=== PATIENT | female | born 1965 | race Caucasian/White ===

== ENCOUNTER 2025-03-17 13:00 | Outpatient (OUT) | payer BC, SELFPAY ==
--- OUTSIDE RECORDS SUMMARY | 2023-12-30 08:20 | XMS_ITS ---
Author Organization [facility] Address [address] [place] [address] Care Team Providers Care Diesel Automotive Technician Name Role Phone RaderJamal dawsonen Unavailable [phone] REASON FOR VISIT Lt knee pain -no xrays Medications Medication SIG (Take, Route, Frequency, Duration) Notes Start Date End Date Status lisinopril Active amLODIPine Active Encounters Encounter Location Date Provider Diagnosis [facility] Office [address] [place] [address] [place] [address] 12/30/2023 Shaun Rader Pain, joint, knee, left M25.562 Assessments Encounter Date Diagnosis (ICD Code) Assessment Notes Treatment Notes Treatment Clinical Notes Section Notes 12/30/2023 Pain, joint, knee, left (ICD-10 - M25.562) Plan Of Treatment Pending Test Test Name Order Date SCC- KNEE 4 VIEW LEFT-[id number] 12/30/2023 Progress Notes * TATYANA REHMAN LDOB:1965 (59 yo F)Acc No.[id number]:12/30/2023 Patient: Yousuf THOMAS TATYANA Beltre Provider: Audrey Rader MD :1965 A ge:58 Y S ex:Female Date:12/30/2023 Address:[address] [place], [place] [id number] Subjective: * Chief Complaints: * 1 . Lt knee pain -no xrays. * Medical History: * Medications: T aking amLODIPine , Taking lisinopril Objective: * Vitals: Assessment: * Assessment: 1. P ain, joint, knee, left - M25.562 Plan: * Treatment: Forms: * Images: * Electronic signature of Jamal Rader MD on 03/17/2025 at 01:08 PM EDT Sign off status: Pending * Provider: Audrey Rader MD Date: 0 12/30/2023 Generated for Arabella daniel/Jo Ann/Varsha on: 0 03/17/2025 01:08 PM EDT
--- OUTSIDE RECORDS SUMMARY | 2025-02-24 06:30 | XMS_ITS ---
Author Organization [facility] es Address [address] [place] [address] Care Team Providers Care Software Test Analyst Name Role Phone Carmina Harding Primary Care Provider REASON FOR VISIT BH F/U Encounters Encounter Location Date Provider Diagnosis [facility] [address] [place] [address] 02/24/2025 Carmina Harding Plan Of Treatment Next Appt Details Provider Name:Carmina atkins, 03/24/2025 12:00:00 PM, [address] [place], [address], Progress Notes * NYASIA REHMANADOB:1965 ( 59 yo F)Acc No.[id number]:02/24/2025 BH F/U - Patient Patient: TATYANA SANABRIA Provider: Fernando Harding :1965 A ge:59 Y S ex:Female Date:02/24/2025 Address:[address] [place], [place] [id number] Subjective: * Chief Complaints: * 1 . BH F/U. Objective: Therapeutic Interventions: Assessment: Plan: * Images: Care Plan Details* * Electronic signature of JOSELYN Mckoy on 03/17/2025 at 01:08 PM EDT Sign off status: Pending * Provider: Fernando Harding Date: 0 02/24/2025 Generated for Printi ng/Faxing/eTransmitting on: 0 03/17/2025 01:08 PM EDT
--- OUTSIDE RECORDS SUMMARY | 2025-03-03 09:15 | XMS_ITS ---
Author Organization [facility] es Address [address] [place] [address] Care Team Providers Care Senior Receptionist Name Role Phone Carmina Harding Primary Care Provider REASON FOR VISIT BH F/U Encounters Encounter Location Date Provider Diagnosis [facility] [address] [place] [address] 03/03/2025 Carmina Harding Situational stress F43.9 and Depression with anxiety F41.8 Assessments Encounter Date Diagnosis (ICD Code) Assessment Notes Treatment Notes Treatment Clinical Notes Section Notes 03/03/2025 Situational stress (ICD-10 - F43.9) 03/03/2025 Depression with anxiety (ICD-10 - F41.8) Plan Of Treatment Next Appt Details Follow Up: 2 Weeks, Reason: Provider Name:Carmina atkins, 03/24/2025 12:00:00 PM, [address] [place], [address], Progress Notes * NYASIA REHMANADOB:1965 ( 59 yo F)Acc No.[id number]:03/03/2025 BH F/U - Patient Patient: TATYANA SANABRIA Provider: Fernando Harding :1965 A ge:59 Y S ex:Female Date:03/03/2025 Address:[address] [place] [id number] Subjective: * Chief Complaints: * 1 . BH F/U. Objective: Therapeutic Interventions: Assessment: * Assessment: 1. S ituational stress - F43.9 (Primary) 2 . D epression with anxiety - F41.8 Plan: * Procedure Codes: 9 0837 PSYTX EST PT&/FAMILY 60 MIN (53+) * Follow Up: 2 Weeks * Images: Care Plan Details* Problem B H F/U Progress Note Present At Appointment: Mazin carcamo Session Type: F kerrie to Face Start Time/End Time: S tart: 1:20End: 2:17 Mental Status Examination Orientation: O riented x 4 Mood: D epressed;Anxious Affect: A ppropriate Insight/Judgment: F air Thought Process: C ircumstantial Speech: N ormal Intervention Risk Assessment: P T denies all areas of risk. No contrary indications present. Therapy Modality: c ognitive behavioral Interventions: a ssess safety risks;cognitive challenging;cognitive refocusing;cognitive reframing;encourage expression of needs;exploration of coping skills;emotion regulation;healthy boundaries;increase awareness of warning signs to triggers;identify unmet emotional needs;supportive reflection;process trauma/significant life events;problem-solve barriers;reflective listening;mindfulness trainingComments :SOCK EXAMINER offered supportive listening and validation of patients feelings. SOCK EXAMINER provided feedback as needed. SOCK EXAMINER worked with patient on ways to navigate her her emotions with her husbands illness and being a caregiver and work a fulltime job. SOCK EXAMINER explored ways to navigate self care and asking for help when needed. Patient to continue her coping skills as needed. Response to Intervention: Mazin carcamo reports her has had another surgery and that she has been struggling to feel like she can breathe and take care of herself. Patient reports that she has been working to secure a home health aid to come in while she is at work. Patient reports that she has not been taking care of herself and that she is giving to everyone around her where she has nothing left for herself. Progress: l ow * Sign off status: Completed true * Provider: Fernando Harding Date: 03/03/2025 Generated for Arabella daniel/Jo Ann/Varsha on: 03/17/2025 01:09 PM EDT
--- OUTSIDE RECORDS SUMMARY | 2025-03-09 10:15 | XMS_ITS ---
Author Organization [facility] es Address [address] [place] [address] Care Team Providers Care Business Practices Supervisor Name Role Phone Carmina Harding Primary Care Provider REASON FOR VISIT BH F/U Encounters Encounter Location Date Provider Diagnosis [facility] [address] [place] [address] 03/09/2025 Carmina Harding Plan Of Treatment Next Appt Details Provider Name:Carmina atkins, 03/24/2025 12:00:00 PM, [address] [place], [address], Progress Notes * [place]ASIA REHMANADOB:1965 ( 59 yo F)Acc No.[id number]:03/09/2025 BH F/U - Patient Patient: TATYANA SANABRIA Provider: Fernando Harding :1965 A ge:59 Y S ex:Female Date:03/09/2025 Address:[address] [place], [place] [phone] Subjective: * Chief Complaints: * 1 . BH F/U. Objective: Therapeutic Interventions: Assessment: Plan: * Images: Care Plan Details* * Electronic signature of JOSELYN Mckoy on 03/17/2025 at 01:08 PM EDT Sign off status: Pending * Provider: Fernando Harding Date: 0 03/09/2025 Generated for Printi ng/Faxing/eTransmitting on: 0 03/17/2025 01:08 PM EDT
--- OUTSIDE RECORDS SUMMARY | 2025-03-10 08:30 | XMS_ITS ---
Author Organization [facility] es Address [address] [place] [address] Care Team Providers Care Crusher And Binder Operator Name Role Phone Carmina Harding Primary Care Provider REASON FOR VISIT BH F/U Encounters Encounter Location Date Provider Diagnosis [facility] [address] [place] [address] 03/10/2025 Carmina Harding Plan Of Treatment Next Appt Details Provider Name:Carmina atkins, 03/24/2025 12:00:00 PM, [address] [place], [address], Progress Notes * NYASIA REHMANADOB:1965 ( 59 yo F)Acc No.[id number]:03/10/2025 BH F/U - Patient Patient: TATYANA SANABRIA Provider: Fernando Harding :1965 A ge:59 Y S ex:Female Date:03/10/2025 Address:[address] [place], [place] [phone] Subjective: * Chief Complaints: * 1 . BH F/U. Objective: Therapeutic Interventions: Assessment: Plan: * Images: Care Plan Details* * Electronic signature of JOSELYN Mckoy on 03/17/2025 at 01:08 PM EDT Sign off status: Pending * Provider: Fernando Harding Date: 03/10/2025 Generated for Printi ng/Faxing/eTransmitting on: 03/17/2025 01:08 PM EDT
--- OUTSIDE RECORDS SUMMARY | 2025-03-17 13:08 | XMS_ITS | Encounter Summary ---
Author Organization [facility] Address [address] [facility] [place] [address] Care Team Providers Care Truck And Transport Mechanic Name Role Phone Santiago Simon MD Primary Care Provider [phone] Encounter Details Date Type Department Care Team (Late st Contact Info) Description 11/09/2024 Abstract [facility] [address] [place] [address] [place] [address] Santiago Simon MD [address] [facility] [address] [place], [place] [id number] Social History Tobacco Use Types Packs/Day Years Used Date Smoking Tobacco: Never Smokeless Tobacco: Never Alcohol Use Standard Drinks/Week Comments Never 0 (1 standard drink = 0.6 oz pur e alcohol) PHQ-2 Answer Date Recorded Patient Health Questionnaire-2 Score 0 10/16/2024 Comments Unknown Sex and Gender Information Value Date Recorded Sex Assigned at Not on file Legal Sex Female 7:13 PM EDT Gender Identity Not on file Sexual Orientation Not on file documented as of this encounter Plan of Treatment Not on file documented as of this encounter Visit Diagnoses Not on filedocumented in this encounter Care Teams Truck And Transport Mechanic Relationship Specialty Start Date End Date Santiago Simon MD [address] [facility] [address] [place] [address] PCP - General Internal Medicine 11/23/22 documented as of this encounter
--- OUTSIDE RECORDS SUMMARY | 2025-03-17 13:08 | XMS_ITS | Encounter Summary ---
Author Organization [facility] Address [address] [facility] [place] [address] Care Team Providers Care Gas Tender Name Role Phone Santiago Simon MD Primary Care Provider [phone] Encounter Details Date Type Department Care Team (Late st Contact Info) Description 02/04/2025 Abstract [facility] [address] [place] [address] [place] [address] Santiago Simon MD [address] [facility] [address] [place], [place] [phone] Social History Tobacco Use Types Packs/Day Years [...] on filedocumented in this encounter Care Teams Gas Tender Relationship Specialty Start Date End Date Santiago Simon MD [address] [place] [address] [place], [place] [phone] PCP - General Internal Medicine 11/23/22 documented as of this encounter
--- OUTSIDE RECORDS SUMMARY | 2025-03-17 13:08 | XMS_ITS | Patient Health Record ---
Author Organization [facility] Address [address] [place] [address] Care Team Providers Care Torque Tester Name Role Phone Shaun Rader Unavailable [phone] Allergies Allergen (clinical drug ingredient) Drug/Non Drug Allergy documented on EMR Reaction Allergy Type Onset Date Status morphine morphine Unknown Drug Allergy Active Reason For Referral No Information Medications Medication SIG (Take, Route, Frequency, Duration) Notes Start Date End Date Status lisinopril Active amLODIPine Active Social History Tobacco Use: Social History Observation Description Date Details (start date - stop date) Never Smoker NA - NA Smoking History Question Answer Notes Smoking Status NonSmoker AUDIT-C (Standard) Question Answer Notes Did you have a drink containing alcohol in the p ast year? 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) Active confirmed Problem 043875810 Strain of other muscles, fascia and tendons at shoulder and upper arm level, right arm, subsequent encounter (S46.811D) Active confirmed Problem 189569759 Preop testing (Z01.818) Active confirmed Problem Tear of right infraspinatus tendon, subsequent encounter (S46.811D) Active confirmed Problem 779782271 Strain of muscle , fascia and tendon of other parts of biceps, right arm, initial encounter (S46.211A) Inactive confirmed Problem 409292771 Strain of muscle , fascia and tendon of other parts of biceps, right arm, subsequent encounter (S46.211D) Inactive confirmed Problem 098307611 Strain of other muscles, fascia and tendons at shoulder and upper arm level, right arm, initial encounter (S46.811A) Inactive confirmed Problem 517854186 Strain of right shoulder, initial encounter (S46.911A) Inactive confirmed Plan Of Treatment No Information Insurance Providers Payer Name Payer Address Payer Phone Subscriber Number Group Number Insured Name Patient Relationship to Insured Coverage Start Date Coverage End Date [facility] [address] [place] [address] [id number] TATYANA REHMAN Self - patient is the insured [facility] [employer] [address] [place] [address] [id number] doi 07-25-21 [employer], Employee 2 Medical (General) History Medical History History ICD Code High Blood Pressure: Yes Sleep apnea: Yes CPAP Machine: Yes Do you use the CPAP machine? Yes Drug Allergies: Yes Surgical History Surgery Date(Month/Year) Right shoulder arthroscopic RCR 08/2021 Hip 1981 Gallbladder 1989
--- OUTSIDE RECORDS SUMMARY | 2025-03-17 13:08 | XMS_ITS | Clinical Summary ---
Author Organization [facility] Healthcare Address [address] [place] [address] Care Team Providers Care Washer And Capper Machine Operator Name Role Phone Santiago Simon MD Primary Care Provider [phone] Allergies Active Allergy Reactions Criticality Noted Date Comments Morphine Nausea And Vomiting, GI intolerance Low 03/16/2013 Other Reaction(s): hallucinations/vomitin g Medications Multiple Vitamin (multivitamin) capsule Take 1 capsule by mouth in the morning. Active lisinopril-hydroCHL OROthiazide 20-12.5 MG tabletIndications:B enign essential hypertension Take 1 tablet by mouth at noon and 1 tablet in the evening. 180 tablet 3 5 07/09/19 26 Active amLODIPine (Norvasc) 2.5 MG tabletIndications:E ssential (primary) hypertension Take 1 tablet (2.5 mg) by mouth Daily 90 tablet 3 5 07/09/19 26 Active diclofenac (Voltaren) 50 MG EC tabletIndications:L ocalized, secondary osteoarthritis of the hand, unspecified laterality Take 1 tablet (50 mg) by mouth in the morning and 1 tablet (50 mg) before bedtime. 60 tablet 11 5 07/09/19 26 Active fluticasone (Flonase) 50 MCG/ACT nasal sprayIndications:Ac sy non-recurrent pansinusitis USE 1 - 2 SPRAYS IN EACH NOSTRIL DAILY *SHAKE GENTLY/PRIME PUMP/CLEAN AND REPLACE CAP* 16 mL 6 5 Active Active Problems Problem Noted Date Diagnosed Date Morbid obesity with BMI of 40.0-44.9, adult 01/29 Retinal hemorrhage of left eye 02/10/2025 Abnormal level of female sex hormones 12/05/2022 Mixed anxiety and depressive disorder 12/05/2022 Obesity, unspecified obesity severity, unspecified obesity type 12/05/2022 Osteoarthritis of hand 12/05/2022 Strain of unspecified muscle , fascia and tendon at shoulder and upper arm level, right arm, initial encounter 11/22/2022 Difficulty walking 02/20/2021 Adrenogenital disorder 08/23/2017 Localized, secondary osteoarthritis of the hand 08/08/2017 Obesity 09/20/2016 Abnormal results of liver function studies 08/12 Attention deficit hyperactivity disorder (ADHD) 08/12/2015 Benign essential hypertension 08/12/2015 Impaired fasting glucose 08/12/2015 Obstructive sleep apnea 08/12/2015 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 [address] [facility] [address] [place] [address] Santiago Simon MD Retinal change (Primary Dx); Encounter for screening mammogram for breast cancer; Retinal hemorrhage of left eye; Subjective carotid bruit; Morbid obesity with BMI of 40.0-44.9, adult ([facility]) 02/10/2025 Travel 02/10/2025 Abstract [facility] [address] [facility] [address] [place] [address] Santiago Simon MD 02/04/2025 Abstract [facility] [address] [facility] [address] [place] [address] Santiago Simon MD from Last 3 Months Family History Medical History Relation Name Comments Skin cancer Father Hodgkin's lymphoma Paternal Grandmother Relation Name Status Comments Father Alive Paternal Grandmother Other Social History Tobacco Use Types Packs/Day Years Used Date Smoking Tobacco: Never Smokeless Tobacco: Never Tobacco Cessation:Counseling Given: Yes Alcohol Use Standard Drinks/Week Comments Never 0 (1 standard drink = 0.6 oz pur e alcohol) PHQ-2 Answer Date Recorded Patient Health Questionnaire-2 Score 0 02/10/2025 Comments Unknown Sex and Gender Information Value Date Recorded Sex Assigned at Not on file Legal Sex Female 7:13 PM EDT Gender Identity Not on file Sexual Orientation Not on file Last Filed Vital Signs Vital Sign Reading Time Taken Comments Blood Pressure 122/78 02/10/2025 8:40 AM EDT Pulse 60 02/10/2025 8:40 AM EDT Temperature 36.9 C (98.4 F) 10/16/2024 10:07 AM EDT Respiratory Rate 17 07/09/2024 2:09 PM EST Oxygen Saturation 98% 02/10/2025 8:40 AM EDT Inhaled Oxygen Concentration - - Weight 117 kg (259 lb) 02/10/2025 8:40 AM EDT Height 162.6 cm (5' 4 ) 02/10/2025 8:40 AM EDT Body Mass Index 44.46 02/10/2025 8:40 AM EDT Plan of Treatment Health Maintenance Due Date Last Done Comments CT Colonography 1965 Colonoscopy 1965 FIT 1965 FOBT 1965 Sigmoidoscopy 1965 Pap Smear 10/14/1984 Cervical Cancer Screening 10/14/1993 HPV/Cotest 10/14/1993 Mammogram 02/04/2020 02/03/2019, 02/03/2019 Influenza Vaccine (#1) 2025 Colorectal Cancer Screening 08/05/2027 FIT-DNA 08/05/2027 08/05/2024, 10/10/2020, 09/29 Procedures Procedure Name Priority Date/Time Associated Diagnosis Comments POCT GLYCATED HEMOGLOBIN, TOTAL Routine 02/10/2025 9:40 AM EDT Retinal change Retinal hemorrhage of left eye Morbid obesity with BMI of 40.0-44.9, adult (CMS-HCC) LAB COLOGUARD COLON CANCER SCREEN Routine 08/05/2024 8:30 AM EST Encounter for screening for malignant neoplasm of colon BI MAMMOGRAM SCREENING TOMOSYNTHESIS BILATERAL Routine 02/03/2019 from Last 3 Months or Most Recently Relevant to Health Maintenance Results * POCT Glycated hemoglobin, total (02/10/2025 9:40 AM EDT) Hemoglobin A1C 5.1 Blood 02/10/2025 9:40 AM EDT Santiago Simon MD POINT OF CARE TEST ENTER/EDIT ORDERABLES Final Result * Cologuard?? colon cancer screening (08/05/2024 8:30 AM EST) NONINV COLON CA DNA+OCC BLD SCRN STL-IMP Negative Negative 08/12/2024 11:26 PM EST [facility] (CLIA #:[id number]) Comment: NEGATIVE TEST RESULT. A negative Cologuard result indicates a low likelihood that a colorectal cancer (CRC) or advanced adenoma (adenomatous polyps with more advanced pre-malignant features) is present. The chance that a person with a negative Cologuard test has a colorectal cancer is less than 1 in 1500 (negative predictive value >99.9%) or has an advanced adenoma is less than 5.3% (negative predictive value 94.7%). These data are based on a prospective cross-sectional study of 10,000 individuals at average risk for colorectal cancer who were screened with both Cologuard and colonoscopy. (John Martinez. et al, N Engl J Med 2014;370(14):9580-3777) The normal value (reference range) for this assay is negative. COLOGUARD RE-SCREENING RECOMMENDATION: Periodic colorectal cancer screening is an important part of preventive healthcare for asymptomatic individuals at average risk for colorectal cancer. Following a negative Cologuard result, the [place] Cancer Society and U.S. Multi-Society Task Force screening guidelines recommend a Cologuard re-screening interval of 3 years. References: [place] [employer] Society Guideline for Colorectal Cancer Screening: https://www.cancer.org/cancer/imizu-vdzbsi-dwaadr/smbruwttz-frfssysoe-snfdevn/ac s-rec ommendations.html.; Abram LAEXIS, Chrissy PEÑA, Parker ManK, Colorectal Cancer Screening: Recommendations for Physicians and Patients from the U.S. Multi-Society Task Force on Colorectal Cancer Screening , Am J Gastroenterology 2017; 112:5797-0998. TEST DESCRIPTION: Composite algorithmic analysis of stool DNA-biomarkers with hemoglobin immunoassay. Quantitative values of individual biomarkers are not reportable and are not associated with individual biomarker result reference ranges. Cologuard is intended for colorectal cancer screening of adults of either sex, 45 years or older, who are at average-risk for colorectal cancer (CRC). Cologuard has been approved for use by the U.S. FDA. The performance of Cologuard was established in a cross sectional study of average-risk adults aged 50-84. Cologuard performance in patients ages 45 to 49 years was estimated by sub-group analysis of near-age groups. Colonoscopies performed for a positive result may find as the most clinically significant lesion: colorectal cancer [4.0%], advanced adenoma (including sessile serrated polyps greater than or equal to 1cm diameter) [20%] or non- advanced adenoma [31%]; or no colorectal neoplasia [45%]. These estimates are derived from a prospective cross-sectional screening study of 10,000 individuals at average risk for colorectal cancer who were screened with both Cologuard and colonoscopy. (John Solorzano et al, N Engl J Med 2014;370(14):0168-4284.) Cologuard may produce a false negative or false positive result (no colorectal cancer or precancerous polyp present at colonoscopy follow up). A negative Cologuard test result does not guarantee the absence of CRC or advanced adenoma (pre-cancer). The current Cologuard screening interval is every 3 years. ([place] Cancer Society and U.S. Multi-Society Task Force). Cologuard performance data in a 10,000 patient pivotal study using colonoscopy as the reference method can be accessed at the following location: www.[employer]/results. Additional description of the Cologuard test process, warnings and precautions can be found at www.[employer].com. Stool specimen (specimen) Rectal contents / Unknown 08/05/2024 8:30 AM EST 08/06/2024 12:47 PM EST us Santiago Simon MD LAB MOLECULAR DIAGNOSTICS BISHNU BELL Final Result .[facility] (CLIA #:[id number]) [address] [place] [id number], [facility] (CLIA #:[id number]) [address] [place] [address] * Bilateral screening mammogram with tomosynthesis (02/03/2019) Anatomical Region Laterality Modality Breast Bilateral Mammography Narrative 02/03/2019 12:00 AM EDT PERFORMED AT [facility] LOCATION:[place] [id number] Patient: MARI REHMAN Exam Date: 02/03/2019 : 1965 Gender:F Ordering : DR SANTIAGO SIMON M.D. Admission #: [id number] Family : Order #: [id number] CLICK HERE TO VIEW EXAM RADIOLOGY REPORT PROCEDURE: MAMMOGRAM BILATERAL SCREENING DIGITAL WITH COMPUTER AIDED DETECTION COMPARISON: MAMMO SCREEN DIG LEEROY, 01/23/2011. MG MAMM SCREEN LEEROY W CAD, 11/16/2016. INDICATIONS: Screening mammography Calculator Name NCI Breast Cancer Risk Assessment Tool 5 Year Breast Cancer Risk 1.50% Lifetime Breast Cancer Risk 10.20% Personal Breast Cancer No Personal Ovarian Cancer No Treatments None See Below For Report LOCATION: [facility] BREAST COMPOSITION: Scattered areas fibroglandular density. FINDINGS: DIAGNOSTIC CATEGORY 1--NEGATIVE NO CHANGE FROM COMPARISON ASSESSMENT. Bilateral round mole markers. Scattered benign-appearing calcifications are present. Scattered benign-appearing lymph nodes are present. Scattered benign-appearing nodules are present. RIGHT BREAST: No significant suspicious finding. Stable cluster of microcalcifications 6:00 a.m., mid breast LEFT BREAST: No significant suspicious finding. RECOMMENDATIONS: ROUTINE MAMMOGRAM AND CLINICAL EVALUATION IN 12 MONTHS. PLEASE NOTE: A NORMAL MAMMOGRAM DOES NOT EXCLUDE THE POSSIBILITY OF BREAST CANCER. A CLINICALLY SUSPICIOUS PALPABLE LUMP SHOULD BE BIOPSIED. Dictated by: Onel Ryan M.D. on 02/03/2019 at 12:57 Approved by: Onel Ryan M.D. on 02/03/2019 at 12:59 Family Cancers Grandmother-maternal with breast cancer at age 55. Procedure Note CONVERSION, GENERIC - 01/04/2023 PERFORMED AT [facility] LOCATION:[place] [id number] Patient: MARI REHMAN Exam Date: 02/03/2019 : 1965 Gender:F Ordering : DR SANTIAGO SIMON M.D. Admission #: [id number] Family : Order #: [id number] CLICK HERE TO VIEW EXAM RADIOLOGY REPORT PROCEDURE: MAMMOGRAM BILATERAL SCREENING DIGITAL WITH COMPUTER AIDED DETECTION COMPARISON: MAMMO SCREEN DIG LEEROY, 01/23/2011. MG MAMM SCREEN LEEROY WCAD, 11/16/2016. INDICATIONS: Screening mammography Calculator Name NCI Breast Cancer Risk Assessment Tool 5 Year Breast Cancer Risk 1.50% Lifetime Breast Cancer Risk 10.20% Personal Breast Cancer No Personal Ovarian Cancer No Treatments None See Below For Report LOCATION: [facility] BREAST COMPOSITION: Scattered areas fibroglandular density. FINDINGS: DIAGNOSTIC CATEGORY 1--NEGATIVE NO CHANGE FROM COMPARISON ASSESSMENT. Bilateral round mole markers. Scattered benign-appearing calcificationsare present. Scattered benign-appearing lymph nodes are present. Scattered benign-appearing nodules are present. RIGHT BREAST: No significant suspicious finding. Stable cluster of microcalcifications 6:00 a.m., mid breast LEFT BREAST: No significant suspicious finding. RECOMMENDATIONS: ROUTINE MAMMOGRAM AND CLINICAL EVALUATION IN 12 MONTHS. PLEASE NOTE: A NORMAL MAMMOGRAM DOES NOT EXCLUDE THE POSSIBILITY OFBREAST CANCER. A CLINICALLY SUSPICIOUS PALPABLE LUMP SHOULD BE BIOPSIED. Dictated by: Onel Ryan M.D. on 02/03/2019 at 12:57 Approved by: Onel Ryan M.D. on 02/03/2019 at 12:59 Family Cancers Grandmother-maternal with breast cancer at age 55. Santiago Simon MD IMG BI PROCEDURES Final Result from Last 3 Months or Most Recently Relevant to Health Maintenance Insurance [place] [facility] OF [facility] Care Teams Washer And Capper Machine Operator Relationship Specialty Start Date End Date Santiago Simon MD [address] [address] PCP - General Internal Medicine 11/23/22
--- OUTSIDE RECORDS SUMMARY | 2025-03-17 13:08 | XMS_ITS | Encounter Summary ---
Author Organization [facility] Address [address] [facility] [place] [address] Care Team Providers Care Port Purser Name Role Phone Santiago Simon MD Primary Care Provider [phone] Encounter Details Date Type Department Care Team (Late st Contact Info) Description 11/09/2024 Abstract [facility] [address] [place] [address] Santiago Simon MD [address] [facility] 110 [place], [place] [id number] Social History Tobacco Use Types Packs/Day Years [...] on filedocumented in this encounter Care Teams Port Purser Relationship Specialty Start Date End Date Santiago Simon MD [address] [facility] 110 [place] [address] PCP - General Internal Medicine 11/23/22 documented as of this encounter
--- OUTSIDE RECORDS SUMMARY | 2025-03-17 13:08 | XMS_ITS | Patient Health Record ---
Author Organization [facility] es Address [address] [place] [address] Care Team Providers Care Brine Process Operator Name Role Phone Carmina Harding Primary Care Provider [phone] Reason For Referral No Information Problems Problem Type SNOMED Code ICD Code Onset Dates Problem Status W/U Status Risk Notes Problem Mixed anxiety and depressive disorder (830066887) Depression with anxiety (F41.8) Active confirmed Problem Adjustment disorder (32347694) Situational stress (F43.9) Active confirmed Encounters Encounter Location Date Provider Diagnosis [facility] [address] [place] [address] 02/08/2025 Carmina Harding [facility] [address] [place] [address] 02/03/2025 Carmina Harding Situational stress F43.9 [facility] [address] [place] [address] 02/10/2025 Carmina Harding Situational stress F43.9 [facility] [address] [place] [address] 03/03/2025 Carmina Harding Situational stress F43.9 and Depression with anxiety F41.8 Assessments Encounter Date Diagnosis (ICD Code) Assessment Notes Treatment Notes Treatment Clinical Notes Section Notes 02/03/2025 Situational stress (ICD-10 - F43.9) 02/10/2025 Situational stress (ICD-10 - F43.9) 03/03/2025 Situational stress (ICD-10 - F43.9) 03/03/2025 Depression with anxiety (ICD-10 - F41.8) Plan Of Treatment Next Appt Details Provider Name:Carmina atkins, 03/24/2025 12:00:00 PM, [address] [place], [address], Insurance Providers Payer Name Payer Address Payer Phone Subscriber Number Group Number Insured Name Patient Relationship to Insured Coverage Start Date Coverage End Date [facility] [address] [place] [address] [id number] TATYANA REHMAN Self - patient is the [facility] [address] [place] [address] [id number] TATYANA REHMAN Self - patient is the insured 3 3 [employer] [facility] [employer] [address] [place] [address] [id number] TATYANA REHMAN Self - patient is the insured 3 3 [employer] [address] [place] [address] [id number] TATYANA REHMAN Self - patient is the insured 1
--- OUTSIDE RECORDS SUMMARY | 2025-03-17 13:08 | XMS_ITS | Clinical Summary ---
Author Organization [facility] Address [address] [place] [address] Care Team Providers Care Napper Tender Name Role Phone Alfred RUIZ MD, Santiago Lemon Primary Care Provider [phone] Allergies Active Allergy Reactions Criticality Noted Date Comments Morphine Vomiting 03/16/2013 Medications * This document contains information received from the source organization and may not represent a complete record from that organization. amLODIPine 5 mg tablet Take 10 mg by mouth once daily. Active diclofenac, EC, 50 mg EC tablet Take 75 mg by mouth twice daily. Active LISINOPRIL ORAL Take 20 mg by mouth twice daily. Active Atomoxetine 80 mg capsule Take 80 mg by mouth once daily. 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 08/04 Family History Medical History Relation Comments Heart Father hypertension, af ib Arthritis Mother fibromyalgia depression [Other] Sister 2 Relation Status Comments Brother Alive Father Alive Mother Alive Sister 1 Alive Sister 2 Social History Tobacco Use Types Packs/Day Years Used Date Smoking Tobacco: Never Cigarettes Alcohol Use Standard Drinks/Week Comments Yes 0 (1 standard drink = 0.6 oz pur e alcohol) occasional Comments No Sex and Gender Information Value Date Recorded Sex Assigned at Not on file Legal Sex Female 3:41 PM EDT Gender Identity Not on file Sexual Orientation Not on file Last Filed Vital Signs Vital Sign Reading Time Taken Comments Blood Pressure 122/63 10/19/2014 12:01 PM EDT Pulse 96 10/19/2014 12:01 PM EDT Temperature 36.6 C (97.8 F) 10/19/2014 12:01 PM EDT Respiratory Rate 16 10/19/2014 12:0 1 PM EDT Oxygen Saturation - - Inhaled Oxygen Concentration - - Weight 129.1 kg (284 lb 9.6 oz) 015 12:01 PM EDT Height 163.4 cm (5' 4.33 ) 10/19/2014 1 2:01 PM EDT Body Mass Index 48.35 10/19/2014 12:01 PM EDT Plan of Treatment Health Maintenance Due Date Last Done Comments Anxiety Screening 10/14/1981 Depression Screening 10/14/1981 HIV Screening 10/14/1981 Hepatitis C Screening 10/14/1981 DTaP,Tdap,Td Vaccine (1 - Tdap) 10/14/1982 Cervical Cancer Screening 10/14/[address] Colonography 10/14/2008 Cologuard (FIT-DNA) 10/14/2008 Colonoscopy 10/14/2008 Colorectal Cancer Screening 10/14/2008 Diabetes Screening 10/14/2008 Fecal Occult Blood 10/14/2008 Lipid Screening 10/14/2008 Sigmoidoscopy 10/14/2008 Pneumococcal Vaccine: 50+ (1 of 1 - PCV) 10/14/2013 Shingrix Vaccine (1 of 2) 10/14/2013 Influenza Vaccine (#1) 2025 RSV Vaccine (1 - 1-dose 75+ series) 10/14/2038 Insurance [employer] [place] OF [place] Care Teams Napper Tender Relationship Specialty Start Date End Date Santiago Simon II, MD PCP - General Internal Medicine 01/30/13
--- OUTSIDE RECORDS SUMMARY | 2025-03-17 13:08 | XMS_ITS | Encounter Summary ---
Author Organization [facility] Address [address] [place] [address] Care Team Providers Care Fuel Efficient Aircraft Designer Name Role Phone Santiago Simon MD Primary Care Provider [phone] Encounter Details Date Type Department Care Team (Late st Contact Info) Description 12/03/2024 Abstract [facility] [address] [place] [address] Santiago Simon MD [address] [facility] 110 [place], [place] [id number] Social History Tobacco Use Types Packs/Day Years [...] on filedocumented in this encounter Care Teams Fuel Efficient Aircraft Designer Relationship Specialty Start Date End Date Santiago Simon MD [address] [facility] 110 [place], [place] [id number] PCP - General Internal Medicine 11/23/22 documented as of this encounter
--- OUTSIDE RECORDS SUMMARY | 2025-03-17 13:08 | XMS_ITS | Encounter Summary ---
Author Organization [facility] Address [address] [place] [address] Care Team Providers Care Legal Billing Specialist Name Role Phone Santiago Simon MD Primary Care Provider [phone] Encounter Details Date Type Department Care Team (Late st Contact Info) Description 02/10/2025 Abstract [facility] [address] [facility] 110 [place] [phone] Santiago Simon MD [address] [facility] 110 [place], [place] [id number] Social History Tobacco Use Types Packs/Day Years [...] on file documented as of this encounter Functional Status * Over the past 2 weeks, how often have you been bothered by any of the following problems? Question Answer Date of Assessment Author Little interest or pleasure in doing things Not at all 02/10/2025 8:40 AM NATOT Chantal Velarde LP N Feeling down, depressed, or hopeless Not at all 02/10/2025 8:40 AM EDT Chantal Velarde LP N Patient Health Questionnaire -2 Score 0 02/10/2025 8:40 AM EDT Chantal Velarde LP N documented as of this encounter Plan of Treatment Not on file documented as of this encounter Visit Diagnoses Not on filedocumented in this encounter Care Teams Legal Billing Specialist Relationship Specialty Start Date End Date Santiago Simon MD [address] [place] [id number] PCP - General Internal Medicine 11/23/22 documented as of this encounter
--- OUTSIDE RECORDS SUMMARY | 2025-03-17 13:09 | XMS_ITS | Encounter Summary ---
Author Organization [facility] Address [address] [facility] [place] [address] Care Team Providers Care Hydraulic Corrugating Machine Operator Name Role Phone Santiago Simon MD Unavailable [phone] Santiago Simon MD Primary Care Provider [phone] Encounter Details Date Type Department Care Team (Late st Contact Info) Description 07/13/2024 [facility] [address] [facility] 110 [place] [address] Santiago Simon MD [address] [facility] 110 [place] [address] Social History Tobacco Use Types Packs/Day Years Used Date Smoking Tobacco: Never Smokeless Tobacco: Never Alcohol Use Standard Drinks/Week Comments Never 0 (1 standard drink = 0.6 oz pur e alcohol) Comments Unknown Sex and Gender Information Value Date Recorded Sex Assigned at Not on file Legal Sex Female 7:13 PM EDT Gender Identity Not on file Sexual Orientation Not on file documented as of this encounter Plan of Treatment Not on file documented as of this encounter Visit Diagnoses Not on filedocumented in this encounter Care Teams Hydraulic Corrugating Machine Operator Relationship Specialty Start Date End Date Santiago Simon MD [address] [facility] 110 [place] [address] PCP - [employer] 08/01/22 Santiago Simon MD [address] [facility] 110 [place] [address] PCP - General Internal Medicine 11/23/22 documented as of this encounter
--- OUTSIDE RECORDS SUMMARY | 2025-03-17 13:09 | XMS_ITS | Encounter Summary ---
Author Organization [facility] Address [address] [facility] [address] Care Team Providers Care Gardener Name Role Phone Santiago Simon MD Unavailable [phone] Santiago Simon MD Primary Care Provider Encounter Details Date Type Department Care Team (Late st Contact Info) Description 03/07/2023 [facility] [address] [facility] 110 [place] [phone] Santiago Simon MD [address] [facility] 110 [place] [address] Social History Tobacco Use Types Packs/Day Years [...] on filedocumented in this encounter Care Teams Gardener Relationship Specialty Start Date End Date Santiago Simon MD [address] [facility] 110 [place] [address] PCP - [employer] 08/01/22 Santiago Simon MD [address] [facility] 110 [place] [address] PCP - General Internal Medicine 11/23/22 documented as of this encounter
--- OUTSIDE RECORDS SUMMARY | 2025-03-17 13:09 | XMS_ITS | Clinical Summary ---
Author Organization [facility] Address [address], [address] [place] [address] Care Team Providers Care Lamp Inspector Name Role Phone Santiago Simon MD Primary Care Provider [phone] Allergies Active Allergy Reactions Criticality Noted Date Comments Morphine Nausea And Vomiting Low 09/04/2021 Medications lisinopril-hydr oCHLOROthiazide (PRINZIDE;ZESTO RETIC) 20-12.5 MG per tablet Take 1 tablet by mouth in the morning and at bedtime Active Multiple Vitamins-Minera ls (THERAPEUTIC MULTIVITAMIN-KS NERALS) tablet Take 1 tablet by mouth daily Active ketorolac (TORADOL) 10 MG tablet Take 1 tablet by mouth every 8 hours Take 3 times a day with food and water starting the day after surgery. Stop medication if having stomach pain. 15 tablet 2 Active Active Problems No known active problems Social History Tobacco Use Types Packs/Day Years Used Date Smoking Tobacco: Never Smokeless Tobacco: Never Tobacco Cessation:Counseling Given: Not Answered Alcohol Use Standard Drinks/Week Comments Yes 0 (1 standard drink = 0.6 oz pur e alcohol) occasional-infrequent Comments No Sex and Gender Information Value Date Recorded Sex Assigned at Not on file Legal Sex Female 3:44 PM EST Gender Identity Not on file Sexual Orientation Not on file Last Filed Vital Signs Vital Sign Reading Time Taken Comments Blood Pressure 138/74 10/04/2022 1:00 PM EDT Pulse 71 10/04/2022 1:00 PM EDT Temperature 36.3 C (97.3 F) 10/04/2022 11:27 AM EDT Respiratory Rate 10 10/04/2022 1:00 PM EDT Oxygen Saturation 95% 10/04/2022 1:00 PM EDT Inhaled Oxygen Concentration - - Weight 114.3 kg (252 lb) 10/04/2022 10:01 AM EDT Height 170.2 cm (5' 7 ) 10/04/2022 10:01 AM EDT Body Mass Index 39.47 10/04/2022 10:01 AM EDT Plan of Treatment Health Maintenance Due Date Last Done Comments Depression Screen 1975 HIV screen 10/14/1978 Hepatitis C screen 10/14/1981 DTaP/Tdap/Td vaccine (1 - Tdap) 10/14/1982 Pap smear 10/14/1984 Cervical cancer screen 10/14/1993 HPV (without or with Pap) 10/14/1993 Breast cancer screen 2003 Lipids 2003 Colonoscopy 10/14/2008 Colorectal Cancer Screen 10/14/2008 FIT/FOBT: Average risk 10/14/2008 Fecal-DNA (Cologuard): Average risk 10/14/2008 Sigmoidoscopy/CT colonography 10/14/2008 Pneumococcal 50+ years Vaccine (1 of 1 - PCV) 10/14/2013 Shingles vaccine (1 of 2) 10/14/2013 Flu vaccine (#1) 01/29/2025 COVID-19 Vaccine (2 - 2024-2 6 season) 2025 11/24/2020 Respiratory Syncytial Virus (RSV) or age 60 yrs+ (1 - 1-dose 75+ series) 10/14/2038 GFR test (Diabetes, CKD 3-4, OR last GFR 15-59) Discontinued 09/21/2022, 09/04/2021 Hepatitis A vaccine Aged Out No longe r eligible based on patient's age to complete this topic Hepatitis B vaccine Aged Out No longe r eligible based on patient's age to complete this topic Hib vaccine Aged Out No longer eligi ble based on patient's age to complete this topic Meningococcal (ACWY) vaccine Aged Out No longer eligible based on patient's age to complete this topic Meningococcal B vaccine Aged Out No l onger eligible based on patient's age to complete this topic Polio vaccine Aged Out No longer elig ible based on patient's age to complete this topic Medical Devices Implanted Type Area Manager Quantitative Device Identifier Shelf Expiration Date Model / Serial / Lot [employer] Estefania C With #2 Fiberwire Implanted:Qty: 1 on 09/14/2021 by Shaun Rader MD at [facility] Right: Shoulder [employer] 04/30/2024 [id number] / / [id number] Procedures Procedure Name Priority Date/Time Associated Diagnosis Comments BASIC METABOLIC PANEL Routine 09/21/2022 4:17 PM EDT from Last 3 Months or Most Recently Relevant to Health Maintenance Results * (ABNORMAL) Basic Metabolic Panel (09/21/2022 4:17 PM EDT) Glucose 90 70 - 99 mg/dL 09/21/2022 4:17 PM [facility] BUN 37(H) 6 - 20 mg/dL 09/21/2022 4:17 PM [facility] Creatinine 1.35(H) 0.50 - 0.90 mg/dL 09/21/2022 4:17 PM [facility] Est, Glom Filt Rate 46(L) >60 mL/min/1.7 3m2 09/21/2022 4:17 PM T [facility] Comment: These results are not intended for use in patients <18 years of age. eGFR results are calculated without a race factor using the 2020 CKD-EPI equation. Careful clinical correlation is recommended, particularly when comparing to results calculated using previous equations. The CKD-EPI equation is less accurate in patients with extremes of muscle mass, extra-renal metabolism of creatine, excessive creatine ingestion, or following therapy that affects renal tubular secretion. BUN/Creatinine Ratio 27(H) 9 - 20 09/21/2022 4:17 PM T [facility] Calcium 10.0 8.6 - 10.4 mg/dL 09/21/2022 4:17 PM [facility] Sodium 140 135 - 144 mmol/L 09/21/2022 4:17 PM [facility] Potassium 4.3 3.7 - 5.3 mmol/L 09/21/2022 4:17 PM EDT [facility] Chloride 104 98 - 107 mmol/L 09/21/2022 4:17 PM EDT [facility] CO2 23 20 - 31 mmol/L 09/21/2022 4:17 PM EDT [facility] Anion Gap 13 9 - 17 mmol/L 09/21/2022 4:17 PM EDT [facility] 09/21/2022 4:17 PM EDT 09/21/2022 4:18 PM EDT us Shaun Rader MD CHEMISTRY ORDERABLES Final Result [facility] [address] [place] [address], [facility] [phone] from Last 3 Months or Most Recently Relevant to Health Maintenance Insurance [employer] Advance Directives * Full Code (Latest Code Status on File) Date Activated Date Inactivated Comments 09/14/2021 11:59 AM 09/14/2021 9:39 PM Care Teams Lamp Inspector Relationship Specialty Start Date End Date Santiago Simon MD [address] [facility] [address] [place] [address] PCP - General Internal Medicine 08/18/21
--- OUTSIDE RECORDS SUMMARY | 2025-03-17 13:09 | XMS_ITS | Encounter Summary ---
Author Organization [facility] Address [address] [facility] [place] [address] Care Team Providers Care Insole Buffer Name Role Phone Santiago Simon MD Primary Care Provider [phone] Encounter Details Date Type Department Care Team (Late st Contact Info) Description 11/09/2024 Abstract [facility] [address] [place] [address] [place] [id number] Santiago Simon MD [address] [facility] [address] [place], [place] [id number] Social History Tobacco Use Types Packs/Day Years [...] on filedocumented in this encounter Care Teams Insole Buffer Relationship Specialty Start Date End Date Santiago Simon MD [address] [facility] [address] [place] [address] PCP - General Internal Medicine 11/23/22 documented as of this encounter
--- OUTSIDE RECORDS SUMMARY | 2025-03-17 13:09 | XMS_ITS | Encounter Summary ---
Author Organization [facility] Address [address] [facility] [place] [address] Care Team Providers Care Sole Ruffer Name Role Phone Santiago Simon MD Primary Care Provider [phone] Encounter Details Date Type Department Care Team (Late st Contact Info) Description 11/09/2024 Abstract [facility] [address] [place] [id number] Santiago Simon MD [address] [facility] [address] [place], [place] [id number] Social History Tobacco Use Types Packs/Day Years [...] on filedocumented in this encounter Care Teams Sole Ruffer Relationship Specialty Start Date End Date Santiago Simon MD [address] [facility] [address] [place] [address] PCP - General Internal Medicine 11/23/22 documented as of this encounter
--- OUTSIDE RECORDS SUMMARY | 2025-03-17 13:09 | XMS_ITS | Encounter Summary ---
Author Organization [facility] Address [address] [facility] [place] [address] Care Team Providers Care Ordnance Handler Name Role Phone Santiago Simon MD Unavailable [phone] Santiago Simon MD Primary Care Provider [phone] Encounter Details Date Type Department Care Team (Late st Contact Info) Description 12/13/2022 Abstract [facility] [address] [place] [address] [place] [phone] Onel Sales, PT [address] [place] [address] Social History Tobacco Use Types Packs/Day Years Used Date Smoking Tobacco: Never Smokeless Tobacco: Never Tobacco Cessation:Counseling Given: Not Answered Alcohol Use Standard Drinks/Week Comments Never 0 [...] on filedocumented in this encounter Care Teams Ordnance Handler Relationship Specialty Start Date End Date Santiago Simon MD [address] [place] [address] [place], [place] [id number] PCP - [place] 08/01/22 Santiago Simon MD [address] [place] [address] [place], [place] [id number] PCP - General Internal Medicine 11/23/22 documented as of this encounter
--- NOTE | 2025-03-17 13:25 | MM_ITS ---
Patient Name: TATYANA REHMAN MR#: [id number] : 1965 Exam Date: 03/17/2025 Ordering Doctor: DR JOSE J AVILA M.D. RADIOLOGY REPORT PROCEDURE: MM TOMOSYNTHESIS SCREENING BI COMPARISON: MG MAMM SCREEN LEEROY W CAD, 02/03/2019. MG MAMM SCREEN LEEROY W CAD, 11/16/2016. INDICATIONS: Screening Calculator Name NCI Breast Cancer Risk Assessment Tool 5 Year Breast Cancer Risk 1.90% Lifetime Breast Cancer Risk 8.90% Personal Breast Cancer No Personal Ovarian Cancer No Treatments None Family Cancers Grandmother-maternal with breast cancer at age ~55. LOCATION: [facility] BREAST COMPOSITION: There are scattered areas of fibroglandular density. FINDINGS: RIGHT BREAST: No significant suspicious finding. LEFT BREAST: No significant suspicious finding. DIAGNOSTIC CATEGORY 1--NEGATIVE. RECOMMENDATIONS: ROUTINE MAMMOGRAM AND CLINICAL EVALUATION IN 12 MONTHS. Dictated by: Nils Sullivan DO on 03/17/2025 at 15:03 Approved by: Nils Sullivan DO on 03/17/2025 at 15:06
== END 2025-03-17 13:01 | disposition home or self-care (01) ==
PROVIDERS: PCP Internal Medicine; Visit Provider Internal Medicine
DX: Z12.31 Encounter for screening mammogram for malignant neoplasm of breast (principal); H35.9 Unspecified retinal disorder; H35.62 Retinal hemorrhage, left eye; R09.89 Other specified symptoms and signs involving the circulatory and respiratory systems; Z80.3 Family history of malignant neoplasm of breast
CPT/HCPCS: 77063; 77067; 93880